=== PATIENT | female | born 1985 | race Caucasian/White ===

== ENCOUNTER 2017-03-23 05:53 | Emergency (ER) | payer SELFPAY ==
--- NOTE | 2017-03-23 06:18 | EDM.PDOC ---
ED HPI LOWER BACK PAIN/INJURY - General Chief Complaint: Back Pain or Injury Stated Complaint: BACK PAIN Time Seen by Provider: 03/23/17 06:02 Source of Information: Reports: Patient History Limitations: Reports: No limitations - History of Present Illness INITIAL COMMENTS - FREE TEXT/NARRATIVE: Is a 31-year-old female. She comes this morning because she's been having some sharp stabbing pain in her left lower back for the last 2 weeks. She says it sort of feels like the pain she had when she had a pulmonary emboli some years ago. She's had no shortness of breath she has not been coughing up any phlegm or blood tinged phlegm. She states the pain also seems to occur when she twists to the left as well as breathes deep. She denies any trauma to her back and she does not remember having hurt her back 2 weeks ago. Sometimes the pain will radiate to the front or from the front to her back. No fever no chills no cough no congestion no nausea vomiting or diarrhea. 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: Neurological History: Reports: Migraines, Seizure - Past Surgical History GI Surgical History: Reports: Appendectomy, Cholecystectomy Female Surgical History: Reports: Hysterectomy Social & Family History - Family History Family Medical History: Noncontributory - Tobacco Use Smoking Status *Q: Current Every Day Smoker Years of Tobacco use: 7 Packs/Tins Daily: 0.2 - Caffeine Use Caffeine Use: Reports: Soda - Recreational Drug Use Recreational Drug Use: No ED ROS GENERAL - Review of Systems Review Of Systems: See Below Constitutional: Denies: fever, chills HEENT: Reports: No symptoms Respiratory: Reports: Pleuritic Chest Pain. Denies: Shortness of Breath, Wheezing, Cough, Hemoptysis Cardiovascular: Denies: Chest pain Endocrine: Reports: no symptoms GI/Abdominal: Denies: Diarrhea, Nausea, Vomiting : Reports: no symptoms Musculoskeletal: Reports: back pain Skin: Reports: no symptoms Neurological: Reports: No Symptoms Psychiatric: Reports: No symptoms Hematologic/Lymphatic: Reports: no symptoms ED EXAM,LOWER BACK PAIN/INJURY - Physical Exam Exam: See Below Exam Limited By: No limitations General Appearance: alert, WD/WN, no apparent distress Ears: normal external exam Nose: normal inspection Throat/Mouth: Normal lips, Normal voice Head: normocephalic Neck: supple Respiratory/Chest: no respiratory distress, lungs clear, normal breath sounds. No: crackles, rales, rhonchi, wheezing, pleural rub, splinting Cardiovascular: regular rate, rhythm, no murmur GI/Abdominal: soft Back Exam: normal inspection, full range of motion, other (Her tenderness seems to be around the left lower thoracic paraspinal muscle area, I can put my finger on the spot but I cannot reproduce her sharp pain with palpation, she has no mid line spine tenderness on palpation, does not appear to have any rib tenderness on palpation) Extremities: normal inspection, normal range of motion Neurological: alert, normal mood/affect Psychiatric: normal affect, normal mood Skin Exam: Warm, Dry Course - Vital Signs Last Recorded V/S: Last Vital Signs Temp 97.4 F 03/23/17 06:03 Pulse 81 03/23/17 06:03 Resp 18 03/23/17 06:03 BP 133/89 03/23/17 06:03 Pulse Ox 100 03/23/17 06:03 - Orders/Labs/Meds Orders: Active Orders 24 hr Category Date Time Status Chest 2V [CR] Stat Exams 03/23/17 06:08 Taken Labs: Laboratory Tests 03/23/17 03/23/17 03/23/17 Range/Units 06:25 06:25 06:25 WBC 7.75 (3.98-10.04) K/mm3 RBC 4.46 (3.98-5.22) M/mm3 Hgb 13.6 (11.2-15.7) gm/L Hct 41.8 (34.1-44.9) % MCV 93.7 (79.4-94.8) fl MCH 30.5 (25.6-32.2) pg MCHC 32.5 (32.2-35.5) g/dl RDW Std Deviation 44.8 (36.4-46.3) fL Plt Count 311 (182-369) K/mm3 MPV 9.2 L (9.4-12.3) fl Neut % (Auto) 64.9 (34.0-71.1) % Lymph % (Auto) 24.6 (19.3-51.7) % [place] % (Auto) 8.9 (4.7-12.5) % Eos % (Auto) 0.9 (0.7-5.8) Baso % (Auto) 0.3 (0.1-1.2) % Neut # (Auto) 5.03 (1.56-6.13) K/mm3 Lymph # (Auto) 1.91 (1.18-3.74) K/mm3 [place] # (Auto) 0.69 H (0.24-0.36) K/mm3 Eos # (Auto) 0.07 (0.04-0.36) K/mm3 Baso # (Auto) 0.02 (0.01-0.08) K/mm3 D-Dimer, Quantitative 0.49 (0.19-0.59) mg/L Sodium 143 (136-145) mEq/L Potassium 4.2 (3.5-5.1) mEq/L Chloride 105 (98-107) mEq/L Carbon Dioxide 31 (21-32) mEq/L Anion Gap 11.2 (5-15) BUN 25 H (7-18) mg/dL Creatinine 0.9 (0.55-1.02) mg/dL Est Cr Clr Drug Dosing 84.31 mL/min Estimated GFR (MDRD) > 60 (>60) mL/min BUN/Creatinine Ratio 27.8 H (14-18) Glucose 101 (74-106) mg/dL Calcium 9.4 (8.5-10.1) mg/dL Total Bilirubin 0.4 (0.2-1.0) mg/dL AST 18 (15-37) U/L ALT 46 (14-59) U/L Alkaline Phosphatase 73 (46-116) U/L Total Protein 7.8 (6.4-8.2) g/dl Albumin 4.0 (3.4-5.0) g/dl Globulin 3.8 gm/dL Albumin/Globulin Ratio 1.1 (1-2) - Radiology Interpretation Free Text/Narrative:: Chest x-ray does not show any acute changes - Re-Assessments/Exams Free Text/Narrative Re-Assessment/Exam: 03/23/17 07:04 I spoke to the patient regarding her chest x-ray as well as her lab results. Her d-dimer was 0.49 and normal. I explained to her that with a negative d- dimer this is pretty conclusive that she does not have a pulmonary emboli and therefore we will not do a CAT scan. She mentioned to me that now sometimes the pain in her back, radiates around to the front. I believe she may have a pinched nerve in her rib causing some of the symptoms and suggested that she go see a chiropractor that she has seen in the past for similar symptoms to see if he can adjust her back and get the pain go away. Departure - Departure Time of Disposition: 07:06 Disposition: Home, Self-Care 01 Condition: good Clinical Impression: Thoracic back pain Qualifiers: Chronicity: acute Back pain laterality: left Qualified Code(s): M54.6 - Pain in thoracic spine Forms: ED Department Discharge Additional Instructions: Continue with heat to your back, continue with the Aleve or ibuprofen as needed for the pain, call a chiropractor on Saturday AM for adjustment of your back and ribs to see if that will ease the pain, return to the ER if needed. - My Orders Last 24 Hours: My Active Orders 03/23/17 06:08 Chest 2V [CR] Stat - Assessment/Plan Last 24 Hours: My Active Orders 03/23/17 06:08 Chest 2V [CR] Stat
[2017-03-23 07:17] VITALS: BP 113/71
--- NOTE | 2017-03-25 10:34 | CR ---
Chest: Two views of the chest were obtained. Comparison: No previous chest x-ray. Heart size and mediastinum are within normal limits. Minimal scoliosis is noted. Lungs are clear with no acute infiltrates. Incidental surgical clips are noted within the upper right abdomen. Impression: 1. Nothing acute is identified on two-view chest x-ray. Diagnostic code #2
== END 2017-03-23 07:20 | disposition home or self-care (01) ==
LOC: JD.ED 05:53
DX: M54.6 Pain in thoracic spine (principal); F17.210 Nicotine dependence, cigarettes, uncomplicated; G43.909 Migraine, unspecified, not intractable, without status migrainosus; Z88.8 Allergy status to other drugs, medicaments and biological substances; Z90.49 Acquired absence of other specified parts of digestive tract; Z90.710 Acquired absence of both cervix and uterus
CPT/HCPCS: 36415; 71020; 71020-26; 80053; 85025; 85379; 99282; 99284

== ENCOUNTER 2017-03-31 02:40 | Emergency (ER) | payer SELFPAY ==
[2017-03-31 03:16] VITALS: BP 130/95
[2017-03-31] MEDS ORDERED: Ibuprofen 600 MG Tab PO ONE (03:21)
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
--- NOTE | 2017-03-31 10:35 | CT ---
CT facial bones Technique: Multiple axial sections through the facial bones were obtained. Reconstructed coronal and sagittal images were also reviewed. Findings: Very minimal areas of mucosal thickening noted within the maxillary sinuses. This is felt to be incidental. Small calcification noted within the right maxillary sinus believed to be incidental. Disruption of the coronoid process noted of the left side of the mandible. This is compatible with fracture although this could be acute or old. Please correlate with patient's symptoms. No additional facial bone abnormality is seen. Impression: 1. Fracture of the left coronoid process of the mandible. This could be acute or old and please correlate. 2. Minimal mucosal thickening within the maxillary sinuses which is felt to be incidental. Diagnostic code #3 I agree with preliminary report issued by [employer] (preliminary report dictated on 03/31/17, 5:51 AM Central Time)
== END 2017-03-31 05:32 | disposition home or self-care (01) ==
LOC: JD.ED 02:40
DX: S00.83XA Contusion of other part of head, initial encounter (principal); S20.219A Contusion of unspecified front wall of thorax, initial encounter; G43.909 Migraine, unspecified, not intractable, without status migrainosus; F17.210 Nicotine dependence, cigarettes, uncomplicated; Z88.8 Allergy status to other drugs, medicaments and biological substances; Z90.49 Acquired absence of other specified parts of digestive tract; Z90.710 Acquired absence of both cervix and uterus; Y04.2XXA Assault by strike against or bumped into by another person, initial encounter
CPT/HCPCS: 70486; 99284; A9270; 99283

== ENCOUNTER 2017-07-22 04:49 | Emergency (ER) | payer MEDICAID ==
[2017-07-22] MEDS ORDERED: Sodium Chloride 0.9% 10 ML Syringe FLUSH PRN (04:51)
[2017-07-22 05:03] VITALS: BP 114/74
--- NOTE | 2017-07-22 05:10 | EDM.PDOC ---
ED HPI GENERAL MEDICAL PROBLEM - General Chief Complaint: Neuro Symptoms/Deficits Stated Complaint: [facility] Time Seen by Provider: 07/22/17 04:50 Source of Information: Reports: Patient, EMS History Limitations: Reports: No Limitations - History of Present Illness INITIAL COMMENTS - FREE TEXT/NARRATIVE: The patient presents with left face, arm and leg weakness. She woke up this morning and tried to go to the bathroom and she could not move the left side of her body and she fell. She said she has had a headache for 2 days and a fever. She went to bed with the headache last night. Last time know well was 7pm last night. She has no cough, congestion, runny nose, chest pain or shortness of breath. She has a history of seizures. She is not currently on any medications. Duration: Day(s): (Last time known well was 7pm last night) Location: Reports: Face, Upper Extremity, Left, Lower Extremity, Left Severity: Severe Improves with: Reports: None Worsens with: Reports: None Context: Reports: Other (Woke up this morning with it) Associated Symptoms: Reports: Fever/Chills, Headaches. Denies: Chest Pain, Cough, Nausea/Vomiting, Shortness of Breath - Related Data Allergies Allergy/AdvReac Type Severity Reaction Status Date / Time cyclobenzaprine Allergy Other Verified 03/31/17 03:01 methocarbamol [From Robaxin] Allergy Other Verified 03/31/17 03:01 metoclopramide [From Reglan] Allergy Other Verified 03/31/17 03:01 prochlorperazine Allergy Other Verified 03/31/17 03:01 [From Compazine] promethazine [From Phenergan] Allergy Other Verified 03/31/17 03:01 Home Meds: Home Meds . [No Known Home Meds] 03/31/17 [History] Past Medical History Respiratory History: Reports: PE, Pneumothorax [employer] History: Reports: Neurological History: Reports: Migraines, Seizure - Infectious Disease History Infectious Disease History: Reports: Chicken Pox - Past Surgical History HEENT Surgical History: Reports: Oral Surgery GI Surgical History: Reports: Appendectomy, Cholecystectomy Female Surgical History: Reports: Hysterectomy Musculoskeletal Surgical History: Reports: Other (See Below) Other Musculoskeletal Surgeries/Procedures:: humerus fx, pelvic fx Social & Family History - Family History Family Medical History: Noncontributory - Tobacco Use Smoking Status *Q: Former Smoker Years of Tobacco use: 7 Packs/Tins Daily: 0.3 Used Tobacco, but Quit: Yes Month Tobacco Last Used: march 2017 - Caffeine Use Caffeine Use: Reports: Soda - Recreational Drug Use Recreational Drug Use: Yes Drug Use in Last 12 Months: Yes - Living Situation & Occupation Living situation: Reports: Single, with Significant Other (Boyfriend) 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) ED ROS GENERAL - Review of Systems Review Of Systems: See Below Constitutional: Reports: Fever HEENT: Reports: No Symptoms Respiratory: Reports: No Symptoms Cardiovascular: Reports: No Symptoms Endocrine: Reports: No Symptoms GI/Abdominal: Reports: No Symptoms : Reports: No Symptoms Musculoskeletal: Reports: No Symptoms Skin: Reports: No Symptoms Neurological: Reports: Weakness (Left face, arm and leg) ED EXAM, NEURO - Physical Exam Exam: See Below Exam Limited By: No Limitations General Appearance: Alert, No Apparent Distress Ears: Normal External Exam Nose: Normal Inspection Head Exam: Atraumatic, Normocephalic Neck: Normal Inspection Respiratory/Chest: No Respiratory Distress, Lungs Clear, Normal Breath Sounds Cardiovascular: Regular Rate, Rhythm, No Edema, No Murmur GI/Abdominal: Soft, Non-Tender, No Organomegaly, No Mass Neurological: Alert, Oriented x 3, Other (Left sided facial droop and left arm and leg paralysis) ED NEURO PROCEDURES - Endotracheal Intubation Time of Intubation: 05:42 ET Intubation Indication: Airway Protection Preparation: Suction, Balloon Tested, BVM Set Up, Difficult Airway Equip Pre-Oxygenation: Other (O2 by nasal cannula) Anesthesia Meds: Etomidate, Succinylcholine Placement: Orotracheal, Cuffed, Uncomplicated Placement Cords Visualized: Yes ETT Size In mm: 7.5 Number of Attempts: 1 Confirmed By: Bilateral Breath Sounds, Chest Xray Tube Secured By: By RT EKG INTERPRETATION EKG Date: 07/22/17 Time: 04:58 Rhythm: Other (sinus tachycardia) Rate (Beats/Min): 106 Leon: Normal P-Wave: Present QRS: Normal ST-T: Normal QT: Normal Course - Vital Signs Last Recorded V/S: Last Vital Signs Temp 99.7 F 07/22/17 04:49 Pulse 115 H 07/22/17 04:49 Resp 16 07/22/17 04:49 BP 114/74 09/04/17 04:49 Pulse Ox 100 07/22/17 04:49 - Orders/Labs/Meds Orders: Active Orders 24 hr Category Date Time Status Cardiac Monitoring [RC] . DIRECTED Care 07/22/17 04:51 Active EKG Documentation Completion [RC] STAT Care 07/22/17 04:52 Active Peripheral IV Care [RC] . DIRECTED Care 07/22/17 04:52 Active Head wo Cont [CT] Stat Exams 07/22/17 04:52 Taken Sodium Chloride 0.9% [Saline Flush] Med 07/22/17 04:51 Active 10 ml FLUSH ASDIRECTED PRN Peripheral IV Insertion Adult [OM.PC] Stat Oth 07/22/17 04:51 Ordered Medication Orders Sodium Chloride (Saline Flush) 10 ml FLUSH ASDIRECTED PRN PRN Reason: Keep Vein Open Last Admin: 07/22/17 05:09 Dose: 10 ml Labs: Laboratory Tests 07/22/17 07/22/17 07/22/17 Range/Units 04:59 04:59 04:59 WBC 5.65 (3.98-10.04) K/mm3 RBC 4.59 (3.98-5.22) M/mm3 Hgb 14.5 (11.2-15.7) gm/L Hct 41.4 (34.1-44.9) % MCV 90.2 (79.4-94.8) fl MCH 31.6 (25.6-32.2) pg MCHC 35.0 (32.2-35.5) g/dl RDW Std Deviation 42.1 (36.4-46.3) fL Plt Count 84 L (182-369) K/mm3 MPV 9.7 (9.4-12.3) fl Neut % (Auto) 93.5 H (34.0-71.1) % Lymph % (Auto) 4.2 L (19.3-51.7) % Overton % (Auto) 2.1 L (4.7-12.5) % Eos % (Auto) 0 L (0.7-5.8) Baso % (Auto) 0.0 L (0.1-1.2) % Neut # (Auto) 5.28 (1.56-6.13) K/mm3 Lymph # (Auto) 0.24 L (1.18-3.74) K/mm3 Overton # (Auto) 0.12 L (0.24-0.36) K/mm3 Eos # (Auto) 0.00 L (0.04-0.36) K/mm3 Baso # (Auto) 0.00 L (0.01-0.08) K/mm3 Manual Slide Review Abnormal smear PT 12.9 (8.0-13.0) SECONDS INR 1.17 APTT 33 (22-36) SECONDS Sodium 133 L (136-145) mEq/L Potassium 3.1 L (3.5-5.1) mEq/L Chloride 95 L (98-107) mEq/L Carbon Dioxide 24 (21-32) mEq/L Anion Gap 17.1 H (5-15) BUN 13 (7-18) mg/dL Creatinine 1.0 (0.55-1.02) mg/dL Est Cr Clr Drug Dosing TNP Estimated GFR (MDRD) > 60 (>60) mL/min BUN/Creatinine Ratio 13.0 L (14-18) Glucose 124 H (74-106) mg/dL Calcium 8.5 (8.5-10.1) mg/dL Total Bilirubin 1.6 H (0.2-1.0) mg/dL AST 110 H (15-37) U/L ALT 116 H (14-59) U/L Alkaline Phosphatase 58 (46-116) U/L Troponin I 0.503 H* (0.00-0.056) ng/mL Total Protein 7.0 (6.4-8.2) g/dl Albumin 3.7 (3.4-5.0) g/dl Globulin 3.3 gm/dL Albumin/Globulin Ratio 1.1 (1-2) HCG, Qual (NEGATIVE) Urine Opiates Screen (NEGATIVE) Ur Buprenorphine Scrn (NEGATIVE) Ur Oxycodone Screen (NEGATIVE) Urine Methadone Screen (NEGATIVE) Ur Propoxyphene Screen (NEGATIVE) Ur Barbiturates Screen (NEGATIVE) Ur Tricyclics Screen (NEGATIVE) Ur Phencyclidine Scrn (NEGATIVE) Ur Amphetamine Screen (NEGATIVE) U Methamphetamines Scrn (NEGATIVE) U Benzodiazepines Scrn (NEGATIVE) U Cocaine Metab Screen (NEGATIVE) U Marijuana (THC) Screen (NEGATIVE) Ethyl Alcohol 0.00 (0.00) gm% 07/22/17 07/22/17 Range/Units 04:59 05:08 WBC (3.98-10.04) K/mm3 RBC (3.98-5.22) M/mm3 Hgb (11.2-15.7) gm/L Hct (34.1-44.9) % MCV (79.4-94.8) fl MCH (25.6-32.2) pg MCHC (32.2-35.5) g/dl RDW Std Deviation (36.4-46.3) fL Plt Count (182-369) K/mm3 MPV (9.4-12.3) fl Neut % (Auto) (34.0-71.1) % Lymph % (Auto) (19.3-51.7) % Overton % (Auto) (4.7-12.5) % Eos % (Auto) (0.7-5.8) Baso % (Auto) (0.1-1.2) % Neut # (Auto) (1.56-6.13) K/mm3 Lymph # (Auto) (1.18-3.74) K/mm3 Overton # (Auto) (0.24-0.36) K/mm3 Eos # (Auto) (0.04-0.36) K/mm3 Baso # (Auto) (0.01-0.08) K/mm3 Manual Slide Review PT (8.0-13.0) SECONDS INR APTT (22-36) SECONDS Sodium (136-145) mEq/L Potassium (3.5-5.1) mEq/L Chloride (98-107) mEq/L Carbon Dioxide (21-32) mEq/L Anion Gap (5-15) BUN (7-18) mg/dL Creatinine (0.55-1.02) mg/dL Est Cr Clr Drug Dosing Estimated GFR (MDRD) (>60) mL/min BUN/Creatinine Ratio (14-18) Glucose (74-106) mg/dL Calcium (8.5-10.1) mg/dL Total Bilirubin (0.2-1.0) mg/dL AST (15-37) U/L ALT (14-59) U/L Alkaline Phosphatase (46-116) U/L Troponin I (0.00-0.056) ng/mL Total Protein (6.4-8.2) g/dl Albumin (3.4-5.0) g/dl Globulin gm/dL Albumin/Globulin Ratio (1-2) HCG, Qual Negative (NEGATIVE) Urine Opiates Screen Negative (NEGATIVE) Ur Buprenorphine Scrn Negative (NEGATIVE) Ur Oxycodone Screen Negative (NEGATIVE) Urine Methadone Screen Negative (NEGATIVE) Ur Propoxyphene Screen Negative (NEGATIVE) Ur Barbiturates Screen Negative (NEGATIVE) Ur Tricyclics Screen Negative (NEGATIVE) Ur Phencyclidine Scrn Negative (NEGATIVE) Ur Amphetamine Screen Presumptive positive H (NEGATIVE) U Methamphetamines Scrn Presumptive positive H (NEGATIVE) U Benzodiazepines Scrn Negative (NEGATIVE) U Cocaine Metab Screen Negative (NEGATIVE) U Marijuana (THC) Screen Negative (NEGATIVE) Ethyl Alcohol (0.00) gm% Meds: Medications Generic Name Dose Route Start Last Admin Trade Name Freq PRN Reason Stop Dose Admin Sodium Chloride 10 ml 07/22/17 04:51 07/22/17 05:09 Saline Flush FLUSH 10 ml ASDIRECTED PRN Administration Keep Vein Open Discontinued Medications Generic Name Dose Route Start Last Admin Trade Name Freq PRN Reason Stop Dose Admin Propofol Confirm 07/22/17 05:49 Diprivan 100 Ml Administered 07/22/17 05:50 Dose 100 mls @ as directed .ROUTE .STK-MED ONE - Re-Assessments/Exams Free Text/Narrative Re-Assessment/Exam: 07/22/17 05:17 The patient came in by ambulance and a stroke alert was called. Her last time know well was 7pm last night. A CT was rapidly done and there was an interparenchymal hemorrhage right frontal lobe of approximately 2.5cm X 4cm. Some small hypoattenuation components within the hemorrhage. Mild edema with slight right to left shift of about 4mm. The radiologist called me and she was concerned this could be a hemorrhagic mass with necrosis. I called [facility] in [place] and talked with Dr Carroll and she will look at the films. 07/22/17 05:54 Dr Stanley the ER physician at [facility] called and accepted the patient. The patient has a history of IV drug abuse and he was wondering if she had a murmur and possible endocarditis. I listened again without a bunch of staff in the room and I could hear a slight murmur. Her troponin also came back elevated at 0.503. I was talking to her boyfriend and the patient became less responsive. I decided to secure her airway with a 7.5 ET tube. I put an NG tube in and confirmed placement. Her WBC was normal. Her platelets were low at 84. Per Na was a little low at 133. Her K was low at 3.1. Her anion gap was elevated at 17.1. Her AST was elevated at 110. Her total bili was 1.6. Her ALT was elevated at 116. Her HCG was negative. Her ETOH was negative. Her urine drug screen was presumptive positive for methamphetamines and amphetamines. Her boyfriend was here now and he says she did inject meth 2 days ago. Endocarditis is a high possibility. I have ordered vancymysin 1.5grams IV and I ordered blood cultures. She is on a propofol for sedation. Departure - Departure Time of Disposition: 06:10 Disposition: DC/Tfer to Acute Hospital 02 Condition: Critical Clinical Impression: Cerebral brain hemorrhage Cerebrovascular accident (CVA) Qualifiers: CVA mechanism: unspecified Qualified Code(s): I63.9 - Cerebral infarction, unspecified Altered mental status Qualifiers: Altered mental status type: somnolence Qualified Code(s): R40.0 - Somnolence Endocarditis Qualifiers: Endocarditis type: infective Infective endocarditis organism: bacterial Chronicity: acute Qualified Code(s): I33.0 - Acute and subacute infective endocarditis - Discharge Information Forms: ED Department Discharge - My Orders Last 24 Hours: My Active Orders 07/22/17 04:51 Cardiac Monitoring [RC] . DIRECTED Sodium Chloride 0.9% [Saline Flush] 10 ml FLUSH ASDIRECTED PRN Peripheral IV Insertion Adult [OM.PC] Stat 07/22/17 04:52 EKG Documentation Completion [RC] STAT Peripheral IV Care [RC] . DIRECTED Head wo Cont [CT] Stat - Assessment/Plan Last 24 Hours: My Active Orders 07/22/17 04:51 Cardiac Monitoring [RC] . DIRECTED Sodium Chloride 0.9% [Saline Flush] 10 ml FLUSH ASDIRECTED PRN Peripheral IV Insertion Adult [OM.PC] Stat 07/22/17 04:52 EKG Documentation Completion [RC] STAT Peripheral IV Care [RC] . DIRECTED Head wo Cont [CT] Stat
[2017-07-22] MEDS ORDERED: Succinylcholine 200 MG/10 ML MDV IV ONE (05:39)
[2017-07-22] MEDS ORDERED: Etomidate 2 MG/ML 20 ML SDV IVPUSH ONE (06:36)
[2017-07-22] MEDS ORDERED: Propofol 200 MG/20 ML SDV IVPUSH ONE ×2 (06:45)
--- NOTE | 2017-07-23 07:41 | CT ---
Head CT Technique: Multiple axial sections through the brain were obtained. Intravenous contrast was not utilized. Comparison: No prior intracranial imaging. Findings: Acute intraparenchymal hemorrhage is identified within the posterior right frontal lobe. This measures about 4.0 x 2.5 cm. Mild surrounding edema is seen. Finding causes some effacement of the right lateral ventricle with mild midline shift by approximately 4.3 mm. No additional parenchymal abnormality is seen. Bone window settings were reviewed which show no acute calvarial abnormality. Visualized sinuses are clear. Impression: 1. Right parenchymal hemorrhage causing mass effect and mild midline shift. Please correlate if reason for hemorrhage is known. Differential includes hemorrhagic tumor or metastasis, trauma or change from bleeding diathesis. Diagnostic code #5 Agree with preliminary report issued by [facility] ([facility] preliminary report dictated on 07/22/17, 6:02 AM Central Time)
--- NOTE | 2017-07-23 14:23 | CR ---
Chest: Portable view of the chest was obtained. Comparison: Previous chest x-ray of 03/23/17. Heart size and mediastinum are within normal limits. Endotracheal tube is seen. Tip lies between the inferior clavicles and franky. Nasogastric tube is seen with tip lying within the proximal stomach. Lungs are clear. Bony structures are grossly intact. Impression: 1. Tip of endotracheal tube and nasogastric tube which is felt to be within normal limits. 2. Nothing acute is otherwise seen on frontal chest x-ray. Diagnostic code #2
== END 2017-07-22 06:18 ==
LOC: JD.ED 04:49
DX: I63.9 Cerebral infarction, unspecified (principal); I33.0 Acute and subacute infective endocarditis; R40.0 Somnolence; Z88.8 Allergy status to other drugs, medicaments and biological substances; Z90.49 Acquired absence of other specified parts of digestive tract; Z90.710 Acquired absence of both cervix and uterus; Z87.891 Personal history of nicotine dependence
CPT/HCPCS: 31500; 36415; 70450; 71010; 80053; 80306; 84484; 84703; 85025; 85610; 85730; 87040; 93005; 96365; 96375; 96376; 99291; 99292; G0480; J0330; J3370; J7050; P9612; 82962; 87077; 87186; J2704